=== PATIENT | female | born 1955 | race Caucasian/White ===

== ENCOUNTER 2024-12-21 06:43 | Emergency (ER) | payer OTHER ==
[~2024-12-21] VITALS: Ht 172.7 cm; Wt 81.6 kg
[2024-12-21] MEDS ORDERED: Acetaminophen/Oxycodone 5 MG/325 MG TABLET PO ONE (07:10)
[2024-12-21] MEDS ORDERED: TRAMADOL HCL50 MG PO (08:24)
== END 2024-12-21 08:45 | disposition home or self-care (01) ==
LOC: ED 06:43
DX: M25.562 Pain in left knee (principal); M54.50 Low back pain, unspecified; V48.9XXA Unspecified car occupant injured in noncollision transport accident in traffic accident, initial encounter; Y93.89 Activity, other specified; Y92.488 Other paved roadways as the place of occurrence of the external cause; Y99.8 Other external cause status